=== PATIENT | female | born 1960 | race Caucasian/White ===

== ENCOUNTER 2019-05-02 14:24 | Emergency (ER) | payer OTHER ==
[2019-05-02 14:35] VITALS: BP 128/80
--- NOTE | 2019-05-02 14:46 | UC ---
Throat Pain/Nasal Pineda HPI - HPI Summary HPI Summary: 59-year-old female who has been sick for approximately 12 days with a moist cough. She states that she has felt this is been viral however she states today she felt worse and has a loose cough and at times just feels "winded". She also states yesterday she slept about 12 hours which is unlike her. She is on Enbrel for rheumatoid arthritis but denies any other chronic illnesses. She is a nonsmoker nor has she ever smoked. - History of Current Complaint Chief Complaint: UCRespiratory Stated Complaint: COUGH RESP ISSUE Time Seen by Provider: 05/02/19 14:36 Hx Obtained From: Patient ?: No Onset/Duration: Gradual Onset Severity: Mild Pain Intensity: 0 Cough: Nonproductive Associated Signs & Symptoms: Positive: Nasal Discharge - Allergies/Home Medications Allergies/Adverse Reactions: Allergies Allergy/AdvReac Type Severity Reaction Status Date / Time leflunomide Allergy Unknown Verified 05/02/19 14:36 Reaction Details methotrexate Allergy Unknown Verified 05/02/19 14:36 Reaction Details Home Medications: Home Medications Calcium Citrate/Vitamin D3 [Citracal + D3 Maximum] 1 tab PO DAILY 05/02/19 [ History Confirmed 05/02/19] Meloxicam 7.5 mg PO PRN 05/02/19 [History] PMH/Surg Hx/FS Hx/Imm Hx - Additional Past Medical History Additional PMH: Rheumatoid arthritis. Previously Healthy: Yes - Surgical History Surgical History: Yes Surgery Procedure, Year, and Place: 2 hernia repairs, D&C, bilat feet reconstruction - Family History Known Family History: Positive: Non-Contributory - Social History Alcohol Use: Weekly Substance Use Type: None Smoking Status (MU): Never Smoked Tobacco Review of Systems All Other Systems Reviewed And Are Negative: Yes ENT: Positive: Nasal Discharge Respiratory: Positive: Cough Is Patient Immunocompromised?: Yes - takes Enbrel for rheumatoid arthritis. Physical Exam Triage Information Reviewed: Yes Appearance: Well-Appearing, No Pain Distress, Well-Nourished Vital Signs: Initial Vital Signs Temp 99.1 F 05/02/19 14:32 Pulse 74 05/02/19 14:32 Resp 18 05/02/19 14:32 BP 128/80 05/02/19 14:32 Pulse Ox 100 05/02/19 14:32 Vital Signs Reviewed: Yes Eyes: Positive: Conjunctiva Clear ENT: Positive: Pharynx normal, Nasal congestion, Nasal drainage - Very mild yellow nasal coryza left nostril. This is nontender on palpation., TMs normal, Uvula midline Neck: Positive: Supple, Nontender, No Lymphadenopathy Respiratory: Positive: No respiratory distress, No accessory muscle use, Rhonchi - Very mild extra rhonchi throughout. Cardiovascular: Positive: RRR, No Murmur, Pulses Normal, Brisk Capillary Refill Abdomen Description: Positive: Nontender, No Organomegaly, Soft. Negative: CVA Tenderness (R), CVA Tenderness (L), Hepatomegaly, Splenomegaly Bowel Sounds: Positive: Present Musculoskeletal Exam: Normal Neurological Exam: Normal Psychological Exam: Normal Skin Exam: Normal Throat Pain/Nasal Course/Dx - Course Course Of Treatment: Chest x-ray:FINDINGS: CARDIOMEDIASTINAL SILHOUETTE: The cardiomediastinal silhouette is normal. PLACIDO: The placido are normal. PLEURA: The costophrenic angles are sharp. No pleural abnormalities are noted. LUNG PARENCHYMA: The lungs are clear. ABDOMEN: The upper abdomen is clear. There is no subphrenic gas. BONES AND SOFT TISSUES: Degenerative changes are noted along the spine. OTHER: None. IMPRESSION: NO ACTIVE CARDIOPULMONARY DISEASE. I am going to treat the patient for a sinusitis however she would like to "give it the weekend" to see if she improves without antibiotics. She is to definitely follow up with her primary care provider next week if no improvement and go to the emergency room if she has any worsening symptoms. - Differential Dx/Diagnosis Provider Diagnosis: Sinusitis Discharge ED - Sign-Out/Discharge Documenting (check all that apply): Patient Departure All imaging exams completed and their final reports reviewed: Yes - Discharge Plan Condition: Good Disposition: HOME Prescriptions: DOXYcycline CAP(*) [DOXYcycline 100MG CAP(*)] 100 mg PO BID 10 Days #20 cap Patient Education Materials: Sinusitis (ED) Referrals: Carine Campbell MD [Primary Care Provider] - Additional Instructions: Increase fluids, rest, no dairy products, antacids or multivitamins including your calcium citrate 2 hours before you take the doxycycline and 2 hours after you take the doxycycline however be sure and take doxycycline with food. Definite follow-up with your primary care provider next week if no improvement. - Billing Disposition and Condition Condition: GOOD Disposition: Home - Attestation Statements Provider Attestation: Per institutional requirements, I have reviewed the chart, however, I was not consulted specifically or made aware of this patient by the midlevel provider. I did not personally evaluate, interact with , or disposition this patient.
== END 2019-05-02 15:29 | disposition home or self-care (01) ==
LOC: UCEAST 14:24
DX: J32.9 Chronic sinusitis, unspecified (principal); R05 Cough; M06.9 Rheumatoid arthritis, unspecified; Z88.8 Allergy status to other drugs, medicaments and biological substances; Z79.899 Other long term (current) drug therapy
CPT/HCPCS: 71046; 99212; G0463